=== PATIENT | male | born 1975 | race Caucasian/White ===

== ENCOUNTER 2020-08-28 11:17 | Observation (INO) | payer OTHER, SELFPAY ==
[2020-08-28] VITALS (7 sets, daily range): BP systolic 131–140; BP diastolic 69–100; PULSE 71–90; RESP 17–30; TEMP 36.6–36.8; O2SAT 96–100; BMI 30.9
--- NOTE | ~2020-08-28 | MR_ITS ---
EXAMINATION: MR cervical spine wo con DATE: 08/28/2020 18:03 INDICATION: Left sided numbness and pain. TECHNIQUE: Magnetic resonance imaging (MRI) of the cervical spine was performed without intravenous c ontrast. Sequences included sagittal T2-weighted FSE, sagittal T2-weighted FS FSE, sagittal T1-weight ed FSE, axial MERGE, and axial T2-weighted FSE. COMPARISON: Cervical spine MRI 11/18/2013 FINDINGS: Bone alignment is normal. Vertebral body heights and intervertebral disc heights are normal . The spinal cord signal intensity is normal. The following disc levels are specifically discussed: C2-C3: The disc does not extend beyond the endplate margin. There is no uncovertebral joint osteoarth ritis. There is no facet joint osteoarthritis. There is no neural foraminal stenosis. There is no edita tral canal stenosis. C3-C4: The disc does not extend beyond the endplate margin. There is mild bilateral uncovertebral jenny nt osteoarthritis. There is mild bilateral facet joint osteoarthritis. There is no neural foraminal s tenosis. There is no central canal stenosis. C4-C5: The disc does not extend beyond the endplate margin. There is moderate left uncovertebral join t osteoarthritis. There is mild right facet joint osteoarthritis. There is mild left neural foraminal stenosis. There is no central canal stenosis. C5-C6: The disc does not extend beyond the endplate margin. There is mild bilateral uncovertebral jenny nt osteoarthritis. There is no facet joint osteoarthritis. There is mild bilateral neural foraminal s tenosis. There is no central canal stenosis. C6-C7: The disc is bulging. There is mild right uncovertebral joint osteoarthritis. There is no facet joint osteoarthritis. There is mild right neural foraminal stenosis. There is no central canal steno sis. C7-T1: The disc does not extend beyond the endplate margin. There is no uncovertebral joint osteoarth ritis. There is mild bilateral facet joint osteoarthritis. There is no neural foraminal stenosis. The re is no central canal stenosis. IMPRESSION: 1. Mild cervical spondylosis, stable from 11/18/2013. Reviewed, dictated and finalized at location A.
--- NOTE | ~2020-08-28 | CT_ITS ---
EXAMINATION: CTA brain carotid EXAM DATE: 08/28/2020 12:59 INDICATION: Left-sided facial and arm numbness/tingling. History of brain aneurysm. Hypertension. TECHNIQUE: Noncontrast head CT. Spiral CTA of the carotid arteries was performed with intravenous i njection 100 cc of Omnipaque 350. Axial, coronal, sagittal reformatted images reviewed. Additional r eformatted images created on dedicated 3-D workstation. NASCET comparable standard used to assess th e degree of arterial stenosis. Spiral CT angiogram cerebral arteries performed with the same intrave nous injection of contrast. Source images of the brain CTA transferred to dedicated workstation for 3 -D rotational image creation. Coronal, sagittal maximum intensity pixel images also reviewed. The d ose-length product (DLP) for this examination was 1828.47 mGy-cm. The exposure was tailored accordi ng to patient size, and iterative reconstruction (ASIR) was used as additional dose reduction techniq ue. Comparison is made to prior examination from 10/21/2013. FINDINGS: Again there is a 3 x 5 mm left carotid terminus aneurysm just beyond siphon, projecting int o the sella turcica. This does not appear significantly changed. No other cerebral artery aneurysms. Bilateral carotid bulb 0% stenosis. Vertebral arteries are codominant. There is no carotid or verteb ral basilar arterial dissection or fibromuscular dysplasia. There is symmetric cerebral artery arbor ization. The sagittal, transverse and sigmoid sinuses enhance normally, no venous sinus thrombosis. I nternal cerebral veins also enhance normally. There is no acute intraparenchymal hemorrhage. No evidence of intraparenchymal brain mass lesion. N o evidence of acute infarction. There is no mass effect or midline shift. There is no obstructive hyd rocephalus suspected. There are no extra-axial collections. There are no calvarial acute fractures. IMPRESSION: 1. Left carotid terminus 3 x 5 mm aneurysm unchanged. 2. Bilateral carotid bulb 0% stenosis. 3. No acute findings. Reviewed, dictated and finalized at location B.
--- NOTE | ~2020-08-28 | XR_ITS ---
EXAMINATION: XR chest 1V portable INDICATION: Hypertension, left arm weakness TECHNIQUE: Portable AP chest at 1204 hours COMPARISON: 10/29/2011 FINDINGS: There is chronic mild elevation of the left hemidiaphragm. The lungs are free of acute opac ities. The cardiomediastinal silhouette is normal. There is no pleural effusion or pneumothorax. IMPRESSION: 1. No acute cardiopulmonary abnormality. Reviewed, dictated and finalized at location A.
--- NOTE | ~2020-08-28 | MR_ITS ---
EXAMINATION: MR brain/brain stem wo/w con DATE: 08/28/2020 18:31 INDICATION: Left-sided body tingling. TECHNIQUE: Magnetic resonance imaging (MRI) of the brain and brainstem was performed without and with 20 mL MultiHance intravenous contrast. Sequences included sagittal and axial T1-weighted FSE, axial diffusion-weighted FS EPI, axial T2*-weighted GRE, axial T2-weighted FLAIR Propeller, and axial T2-we ighted Propeller. Postcontrast sequences included axial and coronal T1-weighted FSE. Apparent diffusi on coefficient (ADC) maps were created. COMPARISON: Brain MRI 10/15/2013, head CT 08/28/2020 FINDINGS: Again seen is a focus of increased T2-weighted signal intensity in the left frontal lobe de ep white matter that is normal as an isolated finding. There is no intracranial hemorrhage or acute i schemic infarct. The ventricles are normal in size. The orbits are normal. The mastoid air cells are normal. The paranasal sinuses are clear. IMPRESSION: 1. Normal brain. Reviewed, dictated and finalized at location A. IMPRESSION: 1. Normal brain.
--- NOTE | 2020-08-28 11:29 | ECG_ITS ---
Measurements Intervals [place] Rate: 80 P: 50 RI: 159 QRS: 39 QRSD: 98 T: 22 QT: 337 QTc: 391 Interpretive Statements SINUS RHYTHM BASELINE ARTIFACT- II, III, AVF, V3-V6 NORMAL ECG Electronically Signed On 08-28-2020 14:32:00 CDT by Anuel Brooks D.O.
--- NOTE | 2020-08-28 11:34 | PC.NURSE ---
Hx brain aneurysm 7-8 years ago (was found during a headache work-up) monitored yearly at [facility], reports no change. Was sitting in a meeting today [id number], felt L side numb , denies hx blood clots. Currently pt reports LUE numbness like it is asleep , denies falls or trauma
[2020-08-28 11:40] LABS: Glucose Point of Care 100 (65-105)
--- NOTE | 2020-08-28 12:01 | ED.NEUROSD ---
HPI - Neuro Symptoms/Deficit General Chief Complaint: Neuro Symptoms/Deficit Stated Complaint: L SIDED BODY TINGLING Time Seen by Provider: 08/28/20 11:33 Source: patient Mode of arrival: ambulatory Limitations: no limitations History of Present Illness HPI Narrative: This is a 45 year old male with history of hypertension, hyperlipidemia, cerebral aneurysm who presents for evaluation of left side tingling. He states he woke up at 530 am with left shoulder and left arm pain. He states he went to work and he noticed that his left face, left arm, and left leg were tingling at 8-830 this morning. He denies headache, left side weakness, numbness, chest pain, sob, nausea, vomiting, dizziness or change in vision. He reports having an episode similar to this years ago. He reports he was evaluated and it sounds like he had muscle studies performed. He is evaluated by [facility] for his aneurysm. He states his last CT scan was in April, and he is to follow every 2 years now. 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 He is followed by Neurosurgery at [facility]. COVID-19 (~02/2020) Dyslipidemia GERD without esophagitis History of renal calculi (~02/2012) Hypertension Surgical History Surgical History History of tonsillectomy and adenoidectomy (~1984) Family History Family History Mother Colon polyp Other Diabetes mellitus Social History Social History (Updated 08/28/20 @ 17:18 by Janelle Beach PA-C) Social History: Surrogate decision maker: Belen Keo Deist, . Code status: Full code. Smoking status: Never smoker Alcohol intake: never Substance use: never Substance use type: does not use Additional living arrangements comments: Patient lives with his in [place]. 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 Gender identity (if verbalized by the patient): Male Spiritual care concerns: No Exam Const: General: healthy appearing, no acute distress and alert Orientation/consciousness: patient oriented x3 Eyes: Conjunctivae: conjunctivae normal Pupils: Equal, round and reactive pupils present EOM: EOMs intact bilaterally Chest: Chest palpation & inspection: normal inspection of the chest Resp: Effort & Inspection: normal respiratory effort and no retractions Auscultation: clear to auscultation bilaterally Cardio: Rate: regular rate Rhythm: regular rhythm Heart sounds: no murmurs GI: GI Palp: Yes Soft to palpation, No Tenderness to palpation present (GI) and No Guarding due to palpation present (GI) Auscultation: normal bowel sounds Skin: General skin exam: normal color Neuro: General: patient oriented x3, moves all extremities, no meningeal signs and CN's II-XI intact bilaterally Cranial nerves: Yes CN's II-XII intact bilaterally Speech: normal speech Gait exam (Neuro): Normal gait present Motor exam (neuro): 5/5 motor strength present throughout Sensory Exam: normal sensation Course Reevaluation(s) Reevaluation #1: I discussed with patient no significant findings and aneursym is stable. I discussed recommendation of observation for an MRI. He is agreeable Date: 08/28/20 Time: 14:35 Consultations Consultation #1: I Discussed case
[2020-08-28 12:04] LABS: Basophils Absolute Auto 0.1 K/mm3 (0.0-0.1); Basophils Percent Auto 0.8 % (0.2-1.2); Eosinophils Absolute Auto 0.1 K/mm3 (0-0.3); Eosinophils Percent Auto 1.2 % (0-4.4); Hematocrit 41.7 % (42.0-52.0); Hemoglobin 14.7 g/dL (14.0-18.0); Immature Granulocyte Absolute 0.01 K/mm3 (0.00-0.031); Immature Granulocyte Percent A 0.2 % (0-0.5); Lymphocytes Absolute Auto 1.88 K/mm3 (0.9-3.2); Lymphocytes Percent Auto 28.9 % (18.3-44.2); Mean Corpuscular HGB Conc 35.3 g/dl (32-36); Mean Corpuscular Hemoglobin 30.9 pg (26-34); Mean Corpuscular Volume 87.6 fl (80-100); Mean Platelet Volume 10.3 fl (7.4-10.4); Monocytes Absolute Auto 0.4 K/mm3 (0.1-0.6); Monocytes Percent Auto 6.3 % (2.6-8.5); Neutrophils Absolute Auto 4.1 K/mm3 (1.3-6.7); Neutrophils Percent Auto 62.6 % (45.5-73.1); Platelet Count Result 252 k/mm3 (150-375); Red Blood Count 4.76 M/mm3 (4.6-6.20); Red Cell Distribution Width 11.9 % (11.5-14.5); White Blood Count 6.5 K/mm3 (4.5-10.0)
[2020-08-28 12:16] LABS: Potassium 4.4 mmol/L (3.4-5.0)
[2020-08-28 12:18] LABS: Prothrombin Time 14.1 Seconds (11.1-14.7)
[2020-08-28 12:19] LABS: Partial Thromboplastin Time 24.8 SECONDS (22.3-36.8)
[2020-08-28 12:21] LABS: Anion Gap 5 mmol/L (8-16); Blood Urea Nitrogen 16 mg/dL (9-20); Calcium 9.9 mg/dL (8.4-10.2); Carbon Dioxide 28 mmol/L (22-30); Chloride 106 mmol/L (98-107); Estimated CRCL calculation 113 ml/min; Estimated Glomerular Filt Rate > 60; Glucose 100 mg/dL (75-110); Sodium 139 mmol/L (137-145)
[2020-08-28 12:27] LABS: Troponin I < 0.012 ng/mL (0.000-0.034)
--- NOTE | 2020-08-28 16:12 | ADMGEN ---
This patient, Brown A Deist, was admitted to 2 Medical Room 241-01. Patient/family oriented to hospital policies and general routines including ID bracelet, bed and alarms, visiting hours, pain management, procedures, bathroom and other care routines, personal items, smoking policy, room service/diet, and visiting hours. Information on how to activate the Rapid Response Team has been discussed. Patient/Family are encouraged to report perceived risks to care and to ask questions if they do not understand what they are told or what they should do. Report received from KASSIE Lunsford.
--- NOTE | 2020-08-28 17:10 | PM.IMHP ---
H&P: HPI History of Present Illness Date/Time: 08/28/20 17:10 Chief Complaint: Left-sided tingling. Narrative: This is a 45-year-old male with hypertension, dyslipidemia, and a stable left carotid terminus aneurysm who presented to the emergency department earlier today from home for evaluation of left-sided tingling. He was in his usual state of health when he awoke this but mentions having some mild discomfort, almost like a pinching sensation in his left upper arm. While in a meeting at work at approximately 08:30 he noticed some tingling throughout the left upper extremity and over the next couple of hours he started to have tingling on the left side of his face and throughout the left leg. When he got up from the meeting he felt as though he was walking a bit strange as his left leg felt like it had fallen asleep. He phoned his doctor who encouraged him to come to the emergency department wear his symptoms resolved within an hour so after arrival and have not returned. He denies vertigo, dizziness, headache, auditory visual changes, and focal weakness. No slurred speech or facial asymmetry. No palpitations or feelings of irregular heartbeat. He has never had similar symptoms in the past. Review of Systems Review of Systems: Narrative: Twelve systems were reviewed with pertinent positives and negatives as per HPI. No fever, chills, or sweats. He denies recent cold and flu symptoms. He had COVID-19 in February 2020 and had a period of time thereafter where he felt like he had some mild cognitive decline but that has improved. No chest pain or pleuritic pain. He denies shortness of breath. No nausea or vomiting. No history of B12 deficiency. No recent injuries or trauma. Except as documented, all other systems were reviewed and are negative. 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 He is followed by Neurosurgery at [facility]. COVID-19 (02/2020) Dyslipidemia GERD without esophagitis History of renal calculi (~02/2012) Hypertension Surgical History Surgical History History of tonsillectomy and adenoidectomy (~1984) Family History Family History (Updated 08/29/20 @ 00:58 by Janelle Beach PA-C) Mother Colon polyp Father Cerebrovascular accident Other Diabetes mellitus Social History Social History (Updated 08/29/20 @ 00:58 by Janelle Beach PA-C) Social History: Surrogate decision maker: Belen Figueroa, . Code status: Full code. Smoking status: Never smoker Alcohol intake: never Substance use: never Substance use type: does not use Additional living arrangements comments: Patient lives with his in [place]. Has no children. 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 Gender identity (if verbalized by the patient): Male Spiritual care concerns: No Meds Home Medications and Allergies Home Medications Medication Instructions Recorded Confirmed Type lisinopril 5 mg PO DAILY 08/28/20 08/28/20 History simvastatin 10 mg DAILY 08/28/20 08/28/20 History Allergies Allergy/AdvReac Type Severity Reaction Status Date / Time No Known Allergies Allergy Verified 08/28/20 16:24 Vital Signs Vital Signs - 24 hr 08/28/20 11:24 08/28/20 13:03 08/28/20 13:47 Temperature 98.2 F Pulse Rate 83 88 78 Respiratory Rate 30 H 17 20 Blood Pressure 140/100 H 134/79 136/90 Pulse Oximetry 96 99 98 08/28/20 14:19 Temperature Pulse Rate 80 Respiratory Rate 20 Blood Pressure 131/95 H Pulse Oximetry 100 Exam Narrative: Exam Narrative: General: Well-developed male sitting up in bed in no distress. Weight: 3.5 kilograms. BMI: 30 point. HEENT:
[2020-08-28] MEDS: SIMVASTATIN 10 MG TABLET PO (23:41)
[2020-08-29] VITALS (10 sets, daily range): BP systolic 114–134; BP diastolic 62–84; PULSE 67–102; RESP 14–16; TEMP 36.4–36.6; O2SAT 96–99
[2020-08-29 06:45] LABS: Triglycerides 115 mg/dL (<150)
[2020-08-29 06:46] LABS: Cholesterol 150 mg/dL (0-200)
[2020-08-29 06:52] LABS: LDL Cholesterol Direct 94 mg/dL
[2020-08-29 06:53] LABS: HDL Direct 36 mg/dL
[2020-08-29 07:16] LABS: Folic Acid 11.5 ng/mL (2.76->20)
[2020-08-29] MEDS: ASPIRIN 81 MG ENTERIC TABLET PO (08:11)
[2020-08-29] MEDS: lisinopriL 5 MG TABLET PO (08:11)
--- NOTE | 2020-08-29 10:33 | WPDNEURCNPN ---
Assessment and Plan Additional Plan complaint of left-sided facial and arm numbness and tingling in addition to the history of documented left carotid terminus 3x5mm aneurysm which by the way is clean even on this examination without evidence of any blood further, neurological workup is being carried out mainly to find out the source of this particular new symptomatology ,echocardiogram is warranted, I have explained the situation to him clearly, will be followed by the neurosurgical service at [facility] after gets discharged from here, MRI of the cervical spine does not reveal any additional cervical spinal axis pathology to explain the left-sided symptomatology. Consult date: 08/29/20 Time Seen: 10:00 HPI: Kevin Figueroa is a 45 year old male admitted to the hospital for the complaints of tingling sensation of the left side of his body including the face, left upper and left lower extremity in addition to the ongoing history of 1. Hypertension 2. Dyslipidemia 3. Left carotid artery aneurysm for which he is being followed by the neurosurgical service at [facility]. As per the information available he was in usual state of health when he woke up notice some discomfort like a pinching sensation in his left upper extremity and while attending the meeting at work he developed tingling sensation throughout the left upper and left lower extremity including the face and when he got up from the meeting he felt as though he was walking a bit strange on his left lower extremity he gave no history of any other associated neurological symptomatology such as headache, visual difficulties, or else focal weakness or slurred speech. past history consistent with aneurysm of the left carotid artery 3x5mm unchanged on the CT scan on August 28, 2020 and being followed by the neurosurgeon at [facility], GERD without esophagitis and renal calculi and hypertension. Evaluation documented normal routine lab, normal MRI of the brain with focus of increased T2 weighted signal intensity in the left frontal lobe deep white matter but no bleed, MRI of cervical spine with only cervical spondylosis no central canal stenosis and no herniated disc, head neck CTA documented left carotid terminus 3 pie 5mm aneurysm. 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 He is followed by Neurosurgery at [place]. COVID-19 (02/2020) Dyslipidemia GERD without esophagitis History of renal calculi (~02/2012) Hypertension Surgical History Surgical History History of tonsillectomy and adenoidectomy (~1984) Family History Family History Mother Colon polyp Father Cerebrovascular accident Other Diabetes mellitus Social History Social History Social History: Surrogate decision maker: Belen Figueroa, . Code status: Full code. Smoking status: Never smoker Alcohol intake: never Substance use: never Substance use type: does not use Additional living arrangements comments: Patient lives with his in [place]. Has no children. 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 Gender identity (if verbalized by the patient): Male Spiritual care concerns: No Meds Home Medications and Allergies Home Medications Medication Instructions Recorded Confirmed Type lisinopril 5 mg PO DAILY 08/28/20 08/28/20 History simvastatin 10 mg DAILY 08/28/20 08/28/20 History Allergies Allergy/AdvReac Type Severity Reaction Status Date / Time No Known Allergies Allergy Verified
--- NOTE | 2020-08-29 14:30 | PM.IMPN ---
Progress Note: A&P Assessment and Plan (1) Left sided numbness: Code(s): R20.0 - Anesthesia of skin Status: Acute Assessment and Plan: ?TIA (2) Hypertension: Code(s): I10 - Essential (primary) hypertension Status: Chronic (3) Dyslipidemia: Code(s): E78.5 - Hyperlipidemia, unspecified Status: Acute Additional Plan The patient presented to the hospital approximately 3 hours after he developed left-sided numbness and tingling to include the face, left arm, and left leg on 08/28 Symptoms resolved in the emergency department and have not returned Labs, imaging, and EKG were reviewed and no acute findings were noted on any of these studies MRI spondylosis, stable from 11/18/2013 Echocardiogram showed mildly reduced EF; pulm reg and increased atrial pressure Cardiology consulted Dr. Adan (neurology) consulted MRI of the cervical spine with no acute changes Check B12 levels wnl Subjective Date/time seen: 08/29/20 14:30 Pt seen and evaluated; labs, VS, and consult note reviewed; denies any new complaints and overall symptoms have resolved Review of Systems Review of Systems: All systems reviewed & are unremarkable except as noted in HPI and below Exam Narrative: Exam Narrative: General: Well-developed male sitting up in bed in no distress. Weight: 3.5 kilograms. BMI: 30 point. HEENT: Normocephalic, atraumatic. Wearing glasses. PERRL, EOMI. Sclerae anicteric. Oral mucosa moist. Oropharynx clear. Neck: Supple. No carotid bruits. Respiratory: Lungs are clear to auscultation bilaterally. Cardiovascular: Regular rate and rhythm with S1-S2. Gastrointestinal: Abdomen is soft, nontender, and nondistended with positive bowel sounds. Skin: Warm and dry. No rash or lesions on limited exam. Extremities: No cyanosis, clubbing, or edema. Radial and pedal pulses intact. Neurological: Alert and oriented. Cranial nerves 2-12 are grossly intact. Speech is clear. No facial asymmetry. No pronator drift. [id number] and rapid alternating movements. Strength 5/5 in upper and lower extremities. He is neurovascular intact throughout. Psychiatric: Pleasant and cooperative. Appropriate mood and affect. Objective Data Vital Signs Vital Signs: Vital Signs - 24 hr 08/28/20 16:16 08/28/20 20:00 08/28/20 21:12 Temperature 36.6 C Pulse Rate 90 76 71 Respiratory Rate 18 Blood Pressure 133/69 Pulse Oximetry 98 08/29/20 00:00 08/29/20 04:00 08/29/20 05:15 Temperature 36.4 C Pulse Rate 68 67 71 Respiratory Rate 16 Blood Pressure 114/62 Pulse Oximetry 96 08/29/20 08:00 08/29/20 09:17 08/29/20 12:00 Temperature Pulse Rate 74 74 Respiratory Rate Blood Pressure Pulse Oximetry 96 Intake/Output Intake/Output: Intake & Output 08/26/20 08/27/20 08/28/20 08/29/20 23:59 23:59 23:59 23:59 Intake Total 480 680 Output Total 0 Balance 480 680 Meds/Results Medications: Active Medications Generic Name Dose Route Start Last Admin Trade Name Freq PRN Reason Stop Dose Admin Aspirin 81 mg 08/29/20 09:00 08/29/20 08:11 Aspirin 81 Mg Enteric Tablet PO 81 mg QAM [facility] Administration Lisinopril 5 mg 08/29/20 09:00 08/29/20 08:11 Lisinopril 5 Mg Tablet PO 5 mg DAILY [facility] Administration Ondansetron HCl 4 mg 08/28/20 14:32 Ondansetron Inj 4 Mg/2 Ml Vial IV PUSH Q4H PRN Nausea Simvastatin 10 mg 08/29/20 21:00 Simvastatin 10 Mg Tablet PO HS [facility] Radiology Results: ITS Impressions Chest X-Ray 08/28/20 12:11 IMPRESSION: 1. No acute cardiopulmonary abnormality. Head/Neck CTA 08/28/20 13:00 IMPRESSION: 1. Left carotid terminus 3 x 5 mm aneurysm unchanged. 2. Bilateral carotid bulb 0% stenosis. 3. No acute findings. Cervical Spine MRI 08/28/20 18:12 IMPRESSION: 1. Mild cervical spondylosis, stable from 11/18/2013. Brain MRI 08/28/20 18:33 IMPRESSION:
--- NOTE | 2020-08-29 17:22 | ECHO_ITS ---
Patient Info Name: Kevin Figueroa Age: 45 years : 1975 Gender: Male Ht: 72 in Wt: 229 lbs BSA: 2.32 m2 HR: 65 bpm BP: 124 / 80 mmHg Technical Quality: Good Exam Date: 08/29/2020 8:53 AM Exam Location: [facility] Pulmonary Patient Status: Inpatient Admit Date: 08/28/2020 Staff Ordering Physician: Janelle Beach PA-C Biomedical Engineering Aide: Thiago Hernandez, MAIK, RT Attending Provider: Deena Alston MD Referring Physician: Yong HAJI; Exam Type: CA echo dop bubble study w con Study Info Indications I50.9 - Heart failure, unspecified Complete two-dimentional, color flow and Doppler transthoracic echocardiogram is performed with agitated saline and with contrast to opacify the left ventricle and to improve the delineation of the left ventricle endocardial borders. Summary 1. Technically suboptimal study due to poor sonographic images. 2. Left ventricular chamber dimension is mildly enlarged. 3. Definity contrast administered improved wall motion interpretation. 4. Left ventricular systolic function is mildly reduced, estimated at 45-50%. 5. There is mildly increased left ventricular wall thickness. 6. The left ventricular diastolic function is normal. 7. E/e' 7 is not elevated. 8. There is trace pulmonic regurgitation. 9. Dilated inferior vena cava with >50% collapse upon inspiration consistent with elevated right atrial pressure, 10 mmHg. Left Ventricle E/e' 7 is not elevated. Definity contrast administered improved wall motion interpretation. Technically suboptimal study due to poor sonographic images. Left ventricular chamber dimension is mildly enlarged. Left ventricular systolic function is mildly reduced, estimated at 45-50%. There is mildly increased left ventricular wall thickness. The left ventricular diastolic function is normal. Right Ventricle Right ventricular systolic function is normal based on normal TAPSE 2.0 cm. Right ventricular chamber dimension is not well visualized. Left Atria Left atrial chamber dimension is normal. Right Atria Right atrial chamber dimension is not well visualized. Atrial Septum Agitated saline injection with and without valsalva maneuver is a suboptimal as only few bubbles seen in right sided cardiac chambers with no obvious shunt to left sided cardiac chambers. Interatrial septum not well visualized by agitated saline imaging. Aortic Valve The aortic valve is probable trileaflet. There is no aortic valve stenosis. There is no aortic valve regurgitation. Pulmonic Valve There is trace pulmonic regurgitation. Mitral Valve There is no mitral valve stenosis. There is no mitral valve regurgitation. Tricuspid Valve There is no tricuspid valve regurgitation. Pericardium/Pleural There is no pericardial effusion. Inferior Vena Cava Dilated inferior vena cava with >50% collapse upon inspiration consistent with elevated right atrial pressure, 10 mmHg. Aorta The aortic root size at the sinus of Valsalva is not well visualized. Left Ventricular Outflow Tract Name Value Normal LVOT 2D LVOT Diameter 2.0 cm LVOT Doppler LVOT Peak Gradient
--- NOTE | 2020-08-29 17:29 | PM.CNCAR ---
"Assessment and Plan Assessment and plan (1) Abnormal echocardiogram: Code(s): R93.1 - Abnormal findings on diagnostic imaging of heart and coronary circulation Status: Acute Assessment and Plan: Mr. Figueroa has noted fatigue, exertional limitations and HIGGINS which can be vague symptoms but also may be related to an early cardiomyopathy. Patient was incidentally found to have some mild LV enlargement, hypokinesis and LVH on his echocardiogram. This triad brings to mind hypertensive heart disease although the patient says his blood pressure has been well controlled. He did have COVID 19, and we do not know the long-term affects of COVID on the heart so there may be a relationship there. He does not have a family history of cardiomyopathy and does not sound like he has any coronary disease. (2) Hypertension: Code(s): I10 - Essential (primary) hypertension Status: Chronic (3) Dyslipidemia: Code(s): E78.5 - Hyperlipidemia, unspecified Status: Acute Additional Plan I recommend we increase his lisinopril to 10 mg daily, and follow-up in the office in a few months time, repeat echo in 6 months. If there has been no improvement of left ventricular function we can be more aggressive with our pharmacologic management. Perhaps we will understand the effects of COVID on heart function better by then. OK to do normal activities; if SOB then sit and rest. History of Present Illness History of Present Illness Consult date/time: 08/29/20 17:29 Reason For Visit: left side paresthesia Narrative: Kevin Figueroa is a 45-year-old male whom we were asked to see at the request of the hospitalist for advice for our advice and opinion regarding: the reduced EF; IL; elevated right atrial pressure found on ECHO. Mr. Figueroa also has a known small left carotid aneurysm, as well as hypertension and hyperlipidemia. History of COVID in February 2020. Mr. Figueroa was admitted with left-sided numbness and tingling which has resolved. Evaluation has been unremarkable. Echo results as below showing EF of 45-50% with mild LV dysfunction, mild LV enlargement, LVH, no valve disease but findings suggestive of elevated right atrial pressure. The patient has no history of heart disease. He says his blood pressures always been easily controlled, generally running about 120/70. He had COVID in February, with cough and fatigue but did not require hospitalization. Ever since then he has had some problems with mental processing, and he has felt very tired and fatigued. He gets tireder faster. Doing yard work, or going up and down stairs can cause unusual shortness of breath and fatigue. Tyrone RUSSID he could work in the [employer] all day with no particular problems. There is no problems with any chest discomfort, pain or tightness. No edema or palpitations. Review of Systems Constitutional: Constitutional: Reports fatigue and Reports lethargy Eyes: Eyes: Reports no additional eye complaints ENT: Reports Normal hearing present Cardiovascular: Cardiovascular: Denies chest pain, Denies pedal edema, Denies leg edema and Denies lightheadedness Respiratory: Respiratory: Denies cough and Reports dyspnea on exertion Gastrointestinal: Gastrointestinal: Denies abdominal pain Genitourinary: Genitourinary: Denies dysuria Musculoskeletal: Musculoskeletal: Reports no additional musculoskeletal complaints Integumentary/Breasts: Skin/Breast: Denies rash Neurologic: Reports numbness Psychiatric: Psychiatric: Reports no additional psychiatric complaints PMFSH Past Medical History Medical History Aneurysm of left carotid artery Left carotid terminus 3 x 5 mm aneurysm, unchanged on CT dated 08/28/2020. He is followed by Neurosurgery at [place]. COVID-19 (02/2020) Dyslipidemia GERD wit"
[2020-08-29] MEDS: SIMVASTATIN 10 MG TABLET PO (20:17)
[2020-08-30] VITALS: PULSE 70
[2020-08-30 04:00] VITALS: PULSE 67
[2020-08-30 06:00] VITALS: BP 111/64; PULSE 68; RESP 16; TEMP 36.5; O2SAT 99
[2020-08-30 08:00] VITALS: PULSE 68
--- NOTE | 2020-08-30 08:15 | PC.NURSE ---
Pt reported to inspector automatic typewriter that neurologist that seen him yesterday states not to take ASA related to HX brain aneurysm, inspector automatic typewriter called to Dr. Adan who reports to D/C ASA and follow up with Neurology on D/C
[2020-08-30] MEDS: lisinopriL 10 MG TABLET PO (08:19)
--- NOTE | 2020-08-30 11:03 | WPDNEUROPN ---
Progress Note: A&P Assessment and Plan (1) Left leg paresthesias: Code(s): R20.2 - Paresthesia of skin Status: Acute (2) Left sided numbness: Code(s): R20.0 - Anesthesia of skin Status: Acute Additional Plan considering the results of the evaluation patient will followed by the fiber technician as an outpatient and also by the neurosurgeon at [facility] Review of Systems Review of Systems: All systems reviewed & are unremarkable except as noted in HPI and below Exam Const: General: cooperative, healthy appearing, comfortable, no acute distress, alert and awake HENMT: Head: normocephalic Ears: hearing grossly normal bilaterally General nose exam: Normal external nose present Face and sinus: normal facial exam Neuro: General: patient oriented x3 Cranial nerves: Yes CN's II-XII intact bilaterally Cognition (Neuro): normal cognition Speech: normal speech Gait exam (Neuro): Normal gait present Deep tendon reflexes (DTR's): Right triceps reflex intensity grade: 1+, Left triceps reflex intensity grade: 1+, Rt Biceps (C5, C6): 1+, Left biceps reflex intensity grade: 1+, Right brachioradialis reflex intensity grade: 1+, Left brachioradialis reflex intensity grade: 1+, Right patellar reflex intensity grade: 1+, Left patellar reflex intensity grade: 1+, Right ankle reflex intensity grade: 1+ and Left ankle reflex intensity grade: 1+ Plantar Reflex Responses: downgoing: bilateral Coordination: [id number] test normal Objective Data Vital Signs Vital Signs: Vital Signs - 24 hr 08/29/20 12:00 08/29/20 14:00 08/29/20 16:00 Temperature 36.4 C L Pulse Rate 74 77 80 Respiratory Rate 14 Blood Pressure 133/77 Pulse Oximetry 99 08/29/20 20:00 08/29/20 22:00 08/30/20 00:00 Temperature 36.6 C Pulse Rate 81 102 H 70 Respiratory Rate 14 Blood Pressure 134/84 Pulse Oximetry 97 08/30/20 04:00 08/30/20 06:00 08/30/20 08:00 Temperature 36.5 C Pulse Rate 67 68 68 Respiratory Rate 16 Blood Pressure 111/64 Pulse Oximetry 99 Intake/Output Intake/Output: Intake & Output 08/27/20 08/28/20 08/29/20 08/30/20 23:59 23:59 23:59 23:59 Intake Total 480 1750 790 Output Total 0 Balance 480 1750 790 Meds/Results Medications: Active Medications Generic Name Dose Route Start Last Admin Trade Name Freq PRN Reason Stop Dose Admin Lisinopril 10 mg 08/30/20 09:00 08/30/20 08:19 Lisinopril 10 Mg Tablet PO 10 mg DAILY JULES Administration Ondansetron HCl 4 mg 08/28/20 14:32 Ondansetron Inj 4 Mg/2 Ml Vial IV PUSH Q4H PRN Nausea Simvastatin 10 mg 08/29/20 21:00 08/29/20 20:17 Simvastatin 10 Mg Tablet PO 10 mg HS JULES Administration Radiology Results: ITS Impressions Chest X-Ray 08/28/20 12:11 IMPRESSION: 1. No acute cardiopulmonary abnormality. Head/Neck CTA 08/28/20 13:00 IMPRESSION: 1. Left carotid terminus 3 x 5 mm aneurysm unchanged. 2. Bilateral carotid bulb 0% stenosis. 3. No acute findings. Cervical Spine MRI 08/28/20 18:12 IMPRESSION: 1. Mild cervical spondylosis, stable from 11/18/2013. Brain MRI 08/28/20 18:33 IMPRESSION: 1. Normal brain. Quality VTE Prophylaxis VTE prophylaxis: mechanical ordered
--- NOTE | 2020-08-30 14:58 | PM.DS ---
DS: Admitting Diagnosis Admitting Diagnosis Admitting Diagnosis: left sided numbness DS: Discharge Diagnosis Discharge Diagnosis (1) Left sided numbness: Code(s): R20.0 - Anesthesia of skin Status: Acute Assessment and Plan: ?TIA F/u with neurosurgeon at [facility] (2) Hypertension: Code(s): I10 - Essential (primary) hypertension Status: Chronic Assessment and Plan: lisinopril dose increaed to 10 (3) Dyslipidemia: Code(s): E78.5 - Hyperlipidemia, unspecified Status: Acute Assessment and Plan: continue with statin DS: Summary Hospital Course Hospital Course: 45 year old man presented to the hospital today approximately 3 hours after he developed left-sided numbness and tingling to include the face, left arm, and left leg. Symptoms resolved in the emergency department and have not returned. Labs, imaging, and EKG were reviewed and no acute findings were noted on any of these studies. He was admitted overnight for stroke workup to include a brain MRI which revealed a normal brain. In addition, Dr. Adan (neurology) was consulted for further recommendation. Echocardiogram was consistent with hypertensive heart disease. Dr. Carey (cardiology) was consulted and recommends follow up in the next 4-6 months. Today he is stable and will discharge home. Time Spent with Patient Time attestation: Total time spent providing and/or coordinating discharge services: Exam Narrative: Exam Narrative: General: Well-developed male sitting up in bed in no distress. Weight: 3.5 kilograms. BMI: 30 point. HEENT: Normocephalic, atraumatic. Wearing glasses. PERRL, EOMI. Sclerae anicteric. Oral mucosa moist. Oropharynx clear. Neck: Supple. No carotid bruits. Respiratory: Lungs are clear to auscultation bilaterally. Cardiovascular: Regular rate and rhythm with S1-S2. Gastrointestinal: Abdomen is soft, nontender, and nondistended with positive bowel sounds. Skin: Warm and dry. No rash or lesions on limited exam. Extremities: No cyanosis, clubbing, or edema. Radial and pedal pulses intact. Neurological: Alert and oriented. Cranial nerves 2-12 are grossly intact. Speech is clear. No facial asymmetry. No pronator drift. [id number] and rapid alternating movements. Strength 5/5 in upper and lower extremities. He is neurovascular intact throughout. Psychiatric: Pleasant and cooperative. Appropriate mood and affect. Discharge Plan Discharge Attending physician on discharge: Bambi Craven Consulting providers: Mic Adan ; Riddhi Carey Discharging Clinician: Kimi Blake Anticipated Discharge Date/Time: 08/30/20 10:53 Patient Disposition: Home, Self-Care Activity: as tolerated Diet: heart healthy Discharge Instructions: Follow-up with Dr. Carey in 3-4 months. Her office may be calling you to schedule a follow up appointment, but you can reach her at [phone]. [facility] Cardiology: [phone]. Call if any questions. Address: [address] [place] [address] [address], [address], [place] [address]. Our office is on the ground floor next to the gift shop of the doctor's office building. Enter through the main entrance for COVID screening. Patient Instructions: Antibiotic Form, Heart Healthy Diet (DC) Stand Alone Forms: General Discharge Information, Work/School Release IP Follow-up/Referrals: Luly Cruz MD [Primary Care Provider] - 2 Weeks Mic Adan MD [Physician] - 4 Weeks Riddhi Carey MD [Physician] - Call for Appointment Discharge Medications: New lisinopril 10 mg Tablet 10 mg PO DAILY 30 Days Qty: 30 RF: 0 Continued simvastatin 10 mg tablet 10 mg DAILY RF: 0 Discontinued lisinopril 5 mg tablet 5 mg PO DAILY RF: 0 Date of admission: 08/28/20 14:32 Primary Care Provider: Luly Cruz Admitting Provider: Deena Alston Attending physician on admission: Leatha Alston
== END 2020-08-30 11:50 | disposition home or self-care (01) ==
LOC: ANHED 12:11 → ANH2MED 15:37
PROVIDERS: Emergency Medicine; Physician Assistant; Admitting Provider Family Medicine; Emergency Provider General Practice; PCP Family Medicine; Visit Provider Family Medicine
DX: R20.0 Anesthesia of skin (principal); I10 Essential (primary) hypertension; E78.5 Hyperlipidemia, unspecified; Z86.16 Personal history of COVID-19; R93.1 Abnormal findings on diagnostic imaging of heart and coronary circulation; R06.02 Shortness of breath
CPT/HCPCS: 36415; 70496; 70498; 70553; 71045; 72141; 80048; 80061; 82607; 82746; 82948; 84443; 84484; 85025; 85610; 85730; 93005; 96375; 99285; A9270; A9577; C8929; G0378; Q9967

== ENCOUNTER 2022-03-08 07:30 | Outpatient (CLI) | payer BC, SELFPAY ==
--- NOTE | 2022-03-29 01:07 | WPDHOMESLEEP ---
Sleep Study - Home Unattended Date of Study: 03/08/22 Ordering Provider: Katarina Durbin, FLAME BRAZING MACHINE OPERATOR Interpreting Provider: Imelda Ordonez, DO Home Sleep Study Type: Watch PAT Height: 1.83 m Weight: 104.326 kg Body Mass Index: 31.1 Neck Circumference (inches): 17 Owings: 5 Reason for Sleep Study Witnessed apneas, unrefreshing sleep Sleep History The patient is a 46-year-old male with hypertension, hyperlipidemia, GERD, mild cardiomyopathy, anxiety and small left carotid terminus aneurysm that had a sleep study ordered by his rn admissions for evaluation of sleep apnea. 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 He occasionally awakens from sleep short of breath. He occasionally awakens at night with heartburn, belching or cough. He frequently snores loud enough that others complain. He occasionally wakes up gasping for air throughout the night. He occasionally has breathing problems at night observed by himself or others. He rarely sweats excessively at night. He denies having heart palpitations or irregular heartbeats during the night. He occasionally falls asleep during the day but never while driving. He denies cataplexy. He frequently has trouble at school or work due to sleepiness. He rarely feels unable to move when waking up or falling asleep. He occasionally experiences vivid dreamlike scenes upon awakening or falling asleep. He rarely feels afraid of going to sleep. He occasionally has nightmares. He frequently remembers his dreams. He frequently has thoughts racing through his mind. He occasionally feels sad, depressed or anxious. He rarely has muscular tension. He occasionally notices parts of his body jerk. He occasionally kicks during the night. He occasionally has crawling and aching feelings in his legs but denies having leg pain during the night. He rarely grinds his teeth during sleep and never awakens with morning jaw pain. He is occasionally bothered by pain during the day but never awakened by pain during the night. He frequently wakes up feeling stiff in the morning. He denies waking up with sore achy muscles. He occasionally wakes up with pain in the neck, spine or other joints. He goes to bed between 9-9:30 p.m. on both weekdays and weekends. It takes him 15-30 minutes to fall asleep most of the time. He wakes up twice throughout the night to urinate. He is able to fall asleep within 15 minutes most of the time. He wakes up at 5:30 a.m. on weekdays and between 5:30-6:30 a.m. on the weekends. He typically gets 6-8 hours of sleep per night. He does not stay in bed after waking up in the morning. He currently lives with his . He does not consume any caffeinated beverages within 2 hours of bedtime. He does not engage in physical exercise before bedtime. He will read watch television before falling asleep. He denies taking naps in the afternoon or the evening. He drinks 3-4 glasses of caffeinated tea per day. He denies tobacco, alcohol and recreational drug use. [facility] Past Medical History Medical History Aneurysm of left carotid artery Left carotid terminus 3 x 5 mm aneurysm, unchanged on CT dated 08/28/2020. He is followed by Neurosurgery at [place]. COVID-19 (02/2020) Dyslipidemia GERD without esophagitis History of renal calculi (~02/2012) Left ventricular systolic dysfunction Surgical History Surgical History History of tonsillectomy and adenoidectomy (~1984) Family History Family History Mother Colon polyp Alive and well Father Cerebrovascular accident Other Cerebrovascular accident PGM and MGF of strokes; PGF of heart disease. Other Diabetes mellitus Social History Social History Social History: [place]
[2022-03-29 01:22] VITALS: BMI 31.1
--- NOTE | 2022-06-26 15:12 | SLEEP ---
DR BRITO IS TRYING OTHER THERAPIES
--- NOTE | 2022-10-07 14:20 | SLEEP ---
[id number] pt using other therapies
== END 2022-03-11 10:00 | disposition home or self-care (01) ==
LOC: ANHCSM 07:31
PROVIDERS: PCP Family Medicine; Visit Provider Nurse Practitioner Adult Health
DX: G47.33 Obstructive sleep apnea (adult) (pediatric) (principal); Z86.2 Personal history of diseases of the blood and blood-forming organs and certain disorders involving the immune mechanism; Z68.32 Body mass index [BMI] 32.0-32.9, adult
CPT/HCPCS: 95800

== ENCOUNTER 2022-10-14 00:42 | Day surgery (SDC) | payer BC, SELFPAY ==
[2022-10-07 09:13] VITALS: BMI 31.4
[2022-10-14 07:09] VITALS: BP 127/79; PULSE 76; RESP 18; TEMP 36.3; O2SAT 98
[2022-10-14] MEDS: LACTATED RINGERS 1,000 ML 150 ML IV CONT (07:18)
--- NOTE | 2022-10-14 07:20 | PM.HPGS ---
History of Present Illness History of Present Illness Consent: Risks, benefits, and alternatives have been discussed and questions answered. Patient agrees to proceed with procedure. Chief complaint: family hx colon polyps, neoplasm screening Narrative: Kevin Figueroa is a 47 year old male Presents for screening colonoscopy. Patient's family history is significant his mother had colon polyps. Patient reports that his current weight appetite and bowel movements are normal. Patient denies abdominal pain. He has had no bleeding. Family history as stated. Previous colonoscopy 2017 was unremarkable. Review of Systems Review of Systems: Review of systems noncontributory. [facility] Past Medical History Medical History Aneurysm of left carotid artery Left carotid terminus 3 x 5 mm aneurysm, unchanged on CT dated 08/28/2020. He is followed by Neurosurgery at [facility]. COVID-19 (02/2020) Dyslipidemia Family history of colonic polyps GERD without esophagitis History of renal calculi (~02/2012) Left ventricular systolic dysfunction Vitamin D deficiency Surgical History Surgical History History of tonsillectomy and adenoidectomy (~1984) Family History Family History Mother Colon polyp Alive and well Father Cerebrovascular accident Other Cerebrovascular accident PGM and MGF of strokes; PGF of heart disease. Other Diabetes mellitus Social History Social History Social History: Surrogate decision maker: Belen Figueroa, . Code status: Full code. Smoking status: Never smoker Alcohol intake: never Substance use: never Substance use type: does not use Lack of Transportation: No Lack of Food: Never True Current Housing: I Have Housing Concerned About Future Housing: No Difficulty Paying Gas/Electric Bills: No Difficulty Paying for Meds: No Currently Unemployed: No Education: Master's Degree or Higher Difficulty w/ Childcare or Family Care: No Living arrangements: with family Additional living arrangements comments: Patient lives with his in [place]. Has no children. 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 Gender identity (if verbalized by the patient): Male Sexual Orientation (if Verbalized by the Patient): Straight or Heterosexual Spiritual care concerns: No Agree to blood products: Yes Meds Home Medications and Allergies Home Medications Medication Instructions Recorded Confirmed Type famotidine 10 mg tablet (Pepcid AC) 10 mg PO BID PRN Heartburn 06/20/21 10/07/22 History losartan 50 mg-hydrochlorothiazide 1 tablet PO DAILY 08/01/22 10/07/22 History 12.5 mg tablet cholecalciferol (vitamin D3) 1,250 1,250 mcg PO WEEKLY #12 tabs 08/21/22 10/07/22 Rx mcg (50,000 unit) tablet cyanocobalamin (vitamin B-12) 1,000 mcg sublingual DAILY #90 tabs 08/21/22 10/07/22 Rx 1,000 mcg sublingual tablet simvastatin 20 mg tablet 20 mg PO QHS #90 tabs 09/17/22 10/07/22 Rx ascorbic acid (vitamin C) 500 mg 250 mg PO EVERY OTHER DAY 10/07/22 10/07/22 History tablet (Vitamin C) ferrous sulfate 325 mg (65 mg 325 mg PO DAILY 10/07/22 10/07/22 History iron) tablet Allergies Allergy/AdvReac Type Severity Reaction Status Date / Time lisinopril AdvReac Cough Verified 10/14/22 07:08 Vital Signs Vital Signs - 24 hr 10/14/22 07:09 Temperature 97.3 F L Pulse Rate 76 Respiratory Rate 18 Blood Pressure 127/79 Pulse Oximetry 98 Oxygen Delivery Room Air Exam Narrative: Physical exam reveals patient to be alert. Vital signs stable. HEENT exam is unremarkable. Patient is anict
--- NOTE | 2022-10-14 08:14 | WPDANESEPPF ---
Anes - Initial Pre Proc Eval Procedure: Operation Date: 10/14/22 08:30 Proposed Procedures p Screening Colonoscopy - Matthias Leon MD Date/Time: 10/14/22 08:14 Surgeon: Matthias Leon MD Pre Op Diagnosis: family hx colon polyps, neoplasm screening Patient Data Age: 47 Gender: M Height: 1.83 m Weight: 102.4 kg Last Vital Signs Temp 97.3 F L 10/14/22 07:09 Pulse 76 10/14/22 07:09 Resp 18 10/14/22 07:09 BP 127/79 10/14/22 07:09 Pulse Ox 98 10/14/22 07:09 O2 Del Method Room Air 10/14/22 07:09 Allergies Allergy/AdvReac Type Severity Reaction Status Date / Time lisinopril AdvReac Cough Verified 10/14/22 07:08 Home Medications Medication Instructions Recorded Confirmed Type famotidine 10 mg tablet (Pepcid AC) 10 mg PO BID PRN Heartburn 06/20/21 10/07/22 History losartan 50 mg-hydrochlorothiazide 1 tablet PO DAILY 08/01/22 10/07/22 History 12.5 mg tablet cholecalciferol (vitamin D3) 1,250 1,250 mcg PO WEEKLY #12 tabs 08/21/22 10/07/22 Rx mcg (50,000 unit) tablet cyanocobalamin (vitamin B-12) 1,000 mcg sublingual DAILY #90 tabs 08/21/22 10/07/22 Rx 1,000 mcg sublingual tablet simvastatin 20 mg tablet 20 mg PO QHS #90 tabs 09/17/22 10/07/22 Rx ascorbic acid (vitamin C) 500 mg 250 mg PO EVERY OTHER DAY 10/07/22 10/07/22 History tablet (Vitamin C) ferrous sulfate 325 mg (65 mg 325 mg PO DAILY 10/07/22 10/07/22 History iron) tablet Patient hx anesthesia problems: none Family hx anesthesia problems: none Results Review: All pre-operative results and documents have been reviewed as part of the pre-operative evaluation. [facility] Past Medical History Medical History Aneurysm of left carotid artery Left carotid terminus 3 x 5 mm aneurysm, unchanged on CT dated 08/28/2020. He is followed by Neurosurgery at [place]. COVID-19 (02/2020) Dyslipidemia Family history of colonic polyps GERD without esophagitis History of renal calculi (~02/2012) Left ventricular systolic dysfunction Vitamin D deficiency Surgical History Surgical History History of tonsillectomy and adenoidectomy (~1984) Family History Family History Mother Colon polyp Alive and well Father Cerebrovascular accident Other Cerebrovascular accident PGM and MGF of strokes; PGF of heart disease. Other Diabetes mellitus Social History Social History Social History: Surrogate decision maker: Belen Figueroa, . Code status: Full code. Smoking status: Never smoker Alcohol intake: never Substance use: never Substance use type: does not use Lack of Transportation: No Lack of Food: Never True Current Housing: I Have Housing Concerned About Future Housing: No Difficulty Paying Gas/Electric Bills: No Difficulty Paying for Meds: No Currently Unemployed: No Education: Master's Degree or Higher Difficulty w/ Childcare or Family Care: No Living arrangements: with family Additional living arrangements comments: Patient lives with his in [place]. Has no children. 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 Gender identity (if verbalized by the patient): Male Sexual Orientation (if Verbalized by the Patient): Straight or Heterosexual Spiritual care concerns: No Agree to blood products: Yes Anes - Eval Final PreProcedure Day of Procedure 10/14/22 08:14 Patient weight: obese Heart: regular rate and rhythm Lungs: clear to auscultation Airway: Mallampati scale class III Neurological: alert and oriented Last oral intake: >/= 8 hours ASA classification: III Emergent: no Anesthetic plan: pr
[2022-10-14 08:45] VITALS: BP 104/62; PULSE 77; RESP 24; O2SAT 95
[2022-10-14 08:55] VITALS: BP 109/71; PULSE 74; RESP 19; O2SAT 98
[2022-10-14 09:05] VITALS: BP 117/82; PULSE 69; RESP 22; O2SAT 98
== END 2022-10-14 09:15 | disposition home or self-care (01) ==
PROVIDERS: PCP Family Medicine; Visit Provider Internal Medicine Gastroenterology
PROC: 0DJD8ZZ Inspection of Lower Intestinal Tract, Via Natural or Artificial Opening Endoscopic (ICD-10-PCS; CPT 45378; principal; 2022-10-14 08:30)
DX: Z12.11 Encounter for screening for malignant neoplasm of colon (principal); K64.8 Other hemorrhoids; Z83.71 Family history of colonic polyps; I72.0 Aneurysm of carotid artery; E78.5 Hyperlipidemia, unspecified; K21.9 Gastro-esophageal reflux disease without esophagitis; E55.9 Vitamin D deficiency, unspecified; E66.9 Obesity, unspecified; Z68.30 Body mass index [BMI] 30.0-30.9, adult
CPT/HCPCS: 45378; J2704; J7120

== ENCOUNTER → 2024-02-19 13:13 | Outpatient (REF) | payer OTHER, SELFPAY | LOC: ANHLAB 13:13 | PROVIDERS: PCP Family Medicine; Visit Provider Plastic Surgery | DX: D22.30 Melanocytic nevi of unspecified part of face (principal); D36.7 Benign neoplasm of other specified sites | CPT/HCPCS: 88305 ==